=== PATIENT | male | born 1945 | race Caucasian/White ===

== ENCOUNTER → 2020-06-23 10:29 | Outpatient (BNVA) | payer MEDICARE, SELFPAY | PROVIDERS: Visit Provider Emergency Medicine | DX: Z20.828 Contact with and (suspected) exposure to other viral communicable diseases (principal); R05 Cough; D84.9 Immunodeficiency, unspecified | CPT/HCPCS: 87635 ==

== ENCOUNTER 2020-11-11 13:49 | Emergency (ER) | payer MEDICARE, SELFPAY ==
[2020-11-11 13:49] VITALS: BP 134/60; PULSE 85; RESP 16; TEMP 36.6; O2SAT 95; BMI 23.3
--- NOTE | 2020-11-11 14:11 | ECG_ITS ---
[facility] Test Date: 2020-11-11 Pat Name: Gabriel Hsieh Department: Room: Gender: Male Senior Technical Analyst: : 1945 Requested By: Heather Coates I Order Number: [id number] Conner MD: Amari Waters M.D. Measurements Intervals [place] Rate: 79 P: 7 MS: 183 QRS: 4 QRSD: 101 T: 149 QT: 377 QTc: 435 Interpretive Statements SINUS RHYTHM WITH OCCASIONAL VENTRICULAR PREMATURE COMPLEXES POSSIBLE LEFT ATRIAL ENLARGEMENT [-0.1mV P WAVE IN V1/V2] LEVT VENTRICULAR HYPERTROPHY No previous ECG available for comparison Electronically Signed On 11-11-2020 15:28:30 CDT by Amari Waters M.D. [id number] f
--- NOTE | 2020-11-11 14:11 | XRR_ITS ---
PROCEDURE INFORMATION: Exam: XR Chest Exam date and time: 11/11/2020 2:23 PM Age: 74 years old Clinical indication: Chest pain. TECHNIQUE: Imaging protocol: XR of the chest. Views: 1 view. COMPARISON: No relevant prior studies available. FINDINGS: Tubes, catheters and devices: Right port with tip in the SVC. Lungs: Bulging of the right hilum could reflect an ascending thoracic aortic aneurysm. There are probable foci of subsegmental atelectasis or scarring bilaterally. Patchy opacity in the mid to lower left chest. Pleural spaces: Small left pleural effusion. Possible small loculated fissural pneumothorax on the right. Heart/Mediastinum: Mediastinal clips are noted. A prosthetic cardiac valve is seen. The heart is enlarged. No gross evidence of pneumomediastinum. Bones/joints: Median sternotomy wires are seen. No gross fracture. XR/XR chest 1V portable [id number] IMPRESSION: 1. Cardiomegaly with small left pleural effusion. Bulging of the right hilum could reflect an ascending thoracic aortic aneurysm. 2. Patchy opacity in the mid to lower left chest that could reflect pneumonia. 3. Possible small loculated fissural pneumothorax on the right. 4. Recommend CT to better assess.
[2020-11-11 14:20] VITALS: O2SAT 97
[2020-11-11 14:29] LABS: Basophils % 0.3 %; Eosinophils # 0.1 10^3/uL (0.0-0.8); Eosinophils % 1.5 %; Hematocrit 34.8 % (42.0-52.0); Lymphocytes # 1.4 10^3/uL (0.8-4.8); Lymphocytes % 24.1 %; Mean Corpuscular HGB Conc 31.6 g/dL (30.0-36.0); Mean Corpuscular Volume 85.3 fL (80-94); Mean Platelet Volume 10.8 fL (7.4-10.4); Monocytes # 0.4 10^3/uL (0.2-0.9); Neutrophils # 3.92 10^3/uL (1.8-7.7); Neutrophils % 66.6 %; Nucleated Red Blood Cells % 0 %; Platelet Count 176 10^3/cmm (130-400); Red Blood Count 4.08 10^6/uL (4.1-5.3); Red Cell Distribution Width 14.9 % (12.1-15.1); White Blood Count 5.9 10^3/uL (4.0-10.0)
[2020-11-11 14:35] VITALS: BP 142/64; PULSE 79; PULSE 83; RESP 22; O2SAT 97
[2020-11-11 14:54] LABS: Troponin(5th) Baseline 46 ng/L (0-15)
[2020-11-11 15:03] LABS: Alanine Aminotransferase 7 U/L (0-41); Albumin Level 3.9 g/dL (3.5-5.2); Alkaline Phosphatase 94 IU/L (40-130); Aspartate Amino Transferase 17 U/L (0-40); Blood Urea Nitrogen 14 mg/dL (8-23); Calcium 8.4 mg/dL (8.5-10.5); Carbon Dioxide 26 mmol/L (22-29); Chloride 104 mmol/L (98-107); Globulin 2.2 g/dL (1.3-4.6); Glucose 87 mg/dL (65-115); Lipase 37 U/L (13-60); NT Pro B Type Natriuretic Pept 11472 pg/mL (0-450); Osmolality Calculated 290 mOsm/kg (285-295); Sodium 140 mmol/L (136-145); Total Bilirubin 0.7 mg/dL (0.15-1.2); Total Protein 6.1 g/dL (6.6-8.7)
--- NOTE | 2020-11-11 15:06 | ED_ITS ---
HPI - Recheck/Abnormal Lab/Rx General: Chief Complaint: Recheck/Abnormal Lab/Rx Stated Complaint: ABNORMAL EKG Time Seen by Provider: 11/11/20 13:51 Source: patient and family () Mode of arrival: EMS Limitations: no limitations History of Present Illness: HPI narrative: 74-year-old male with a history of valvular heart disease and who is scheduled for valve repair later this month presents to the emergency department after going to urgent care. He went to the urgent care because he had noticed that he had episodes of bradycardia accompanied by shortness of breath. This has been happening over the last week but has been getting more frequent and it happened several times today. He states that when he happens he checks his pulse oximeter his heart rate drops into the 40s and he becomes short of breath. When he went to urgent care they felt his EKG was abnormal and so sent him here to be evaluated. Review of Systems General: Reports: 10 or more systems reviewed and unremarkable except in HPI and below PFSH ED 2 PFSH: Medical History Chest pain Social History Smoking and tobacco status: never smoked Alcohol intake: never Physical Exam Const: COMMON NORMALS: no acute distress, average body habitus, patient oriented x3, no limitations, healthy appearing, alert and well nourished HENMT: COMMON NORMALS: normocephalic, atraumatic and moist oral mucous membranes HEAD & SCALP: normocephalic and atraumatic Neck/C-Spine: COMMON NORMALS: no meningeal signs and no JVD Resp: COMMON NORMALS: normal respiratory effort, No retractions, No use of accessory muscles, clear to auscultation bilaterally and percussion normal AUSCULTATION: clear to auscultation bilaterally PERCUSSION: percussion normal Cardio: COMMON NORMALS: no JVD, regular rate, regular rhythm, S1 normal heart sound present, S2 normal heart sound present, No gallops present (Cardio), No clicks present (Cardio), No murmurs present (Cardio), No rub (Cardio) and Peripheral pulses 2+ throughout RATE: regular rate RHYTHM: regular rhythm HEART SOUNDS: S1 normal heart sound present and S2 normal heart sound present PERIPHERAL PULSES: Peripheral pulses 2+ throughout GI: COMMON NORMALS: Normal to inspection, nondistended, normoactive bowel sounds present, Soft to palpation, non-tender, No hepatosplenomegaly present, no masses and no bruits PALPATION: Yes Soft to palpation and Yes No hepatosplenomegaly present Extremity: COMMON NORMALS: normal to inspection, full ROM, capillary refill normal, no calf tenderness and no pedal edema Neuro: COMMON NORMALS: patient oriented x3 SENSORIUM/ORIENTATION: Yes alert MENINGEAL SIGNS: Yes no meningeal signs Skin: COMMON NORMALS: no rashes or lesions noted, no wounds, turgor normal, no jaundice, no petechiae and no mottling GENERAL SKIN EXAM: no rashes or lesions noted and turgor normal Course Reevaluation(s): Reevaluation #1: Discussed his lab and imaging findings with him. Discussed the thoracic aortic aneurysm which the patient and his state that they know of, it is not large enough to require urgent intervention. He is also developing pneumonia based on the CT scan findings. He is in CHF and they are aware of this diagnosis. He still has pleural effusions which they know about. He is not short of breath at this time. He will be discharged home on oral antibiotics and he is to follow-up with his primary care provider. They voiced understanding and they are in agreement with the plan. Time: 17:30 Vital Signs: Vital signs: Vital Signs Temperature 97.8 F 11/11/20 13:49 Pulse Rate 77 11/11/20 19:05 Respiratory Rate 19 H 11/11/20 19:05 Blood Pressure 132/60 11/11/20 19:05 Pulse Oximetry 96 11/11/20 19:05 MDM - Recheck/Abnormal Lab/Rx MDM Narrative: Medical decision making narrative: 74-year-old male who was sent to the emergency department by his primary care provider for evaluation of an abnormal EKG. The patient has been having intermittent shortness of breath with associated bradycardia. In the emergency department his heart rate was normal throughout his ED stay. He had no episodes of shortness of breath in the emergency department. He recently had thoracocentesis done at [facility] in [place]. He still has some bilateral pleural effusion. He is also in CHF and has pneumonia. He is discharged home on oral antibiotics after receiving a dose of intravenous ceftriaxone. Medical Records: Attestation: I reviewed the patient's medical records. Lab Data: Attestation: I reviewed the patient's lab results. Labs: Lab Results 11/11/20 11/11/20 11/11/20 Range/Units 14:17 14:17 14:17 WBC 5.9 (4.0-10.0) 10^3/ uL RBC 4.08 L (4.1-5.3) 10^6/u L Hgb 11.0 L (11.7-16.6) g/dL Hct 34.8 L (42.0-52.0) % MCV 85.3 (80-94) fL MCH 27.0 L (28.0-34.0) pg MCHC 31.6 (30.0-36.0) g/dL RDW 14.9 (12.1-15.1) % Plt Count 176 (130-400) 10^3/c mm MPV 10.8 H (7.4-10.4) fL Neut % (Auto) 66.6 % Lymph % (Auto) 24.1 % Harrison % (Auto) 7.0 % Eos % (Auto) 1.5 % Baso % (Auto) 0.3 % Neut # (Auto) 3.92 (1.8-7.7) 10^3/u L Lymph # (Auto) 1.4 (0.8-4.8) 10^3/u L Harrison # (Auto) 0.4 (0.2-0.9) 10^3/u L Eos # (Auto) 0.1 (0.0-0.8) 10^3/u L Baso # (Auto) 0.0 (0.0-0.1) 10^3/u L Nucleated RBC % (a uto) 0 % Nucleated RBCs # 0.0 /100WBC Sodium 140 (136-145) mmol/L Potassium 4.0 (3.5-5.1) mmol/L Chloride 104 (98-107) mmol/L Carbon Dioxide 26 (22-29) mmol/L Anion Gap 14.0 (5-19) BUN 14 (8-23) mg/dL Creatinine 0.8 (0.7-1.2) mg/dL GFR Calculation Not Reportable Glucose 87 (65-115) mg/dL Calculated Osmolal ity 290 (285-295) mOsm/k g Calcium 8.4 L (8.5-10.5) mg/dL Total Bilirubin 0.7 (0.15-1.2) mg/dL AST 17 (0-40) U/L ALT 7 (0-41) U/L Alkaline Phosphata se 94 (40-130) IU/L Troponin T Baselin e 46 H (0-15) ng/L Troponin T 120 Min [place] (0-15) ng/L Delta Troponin T (0-10) ABS# NT-Pro-B Natriuret Pep 66506 H (0-450) pg/mL Total Protein 6.1 L (6.6-8.7) g/dL Albumin 3.9 (3.5-5.2) g/dL Globulin 2.2 (1.3-4.6) g/dL Lipase 37 (13-60) U/L 11/11/20 Range/Units 15:50 WBC (4.0-10.0) 10^3/ uL RBC (4.1-5.3) 10^6/u L Hgb (11.7-16.6) g/dL Hct (42.0-52.0) % MCV (80-94) fL MCH (28.0-34.0) pg MCHC (30.0-36.0) g/dL RDW (12.1-15.1) % Plt Count (130-400) 10^3/c mm MPV (7.4-10.4) fL Neut % (Auto) % Lymph % (Auto) % Harrison % (Auto) % Eos % (Auto) % Baso % (Auto) % Neut # (Auto) (1.8-7.7) 10^3/u L Lymph # (Auto) (0.8-4.8) 10^3/u L Harrison # (Auto) (0.2-0.9) 10^3/u L Eos # (Auto) (0.0-0.8) 10^3/u L Baso # (Auto) (0.0-0.1) 10^3/u L Nucleated RBC % (a uto) % Nucleated RBCs # /100WBC Sodium (136-145) mmol/L Potassium (3.5-5.1) mmol/L Chloride (98-107) mmol/L Carbon Dioxide (22-29) mmol/L Anion Gap (5-19) BUN (8-23) mg/dL Creatinine (0.7-1.2) mg/dL GFR Calculation Glucose (65-115) mg/dL Calculated Osmolal ity (285-295) mOsm/k g Calcium (8.5-10.5) mg/dL Total Bilirubin (0.15-1.2) mg/dL AST (0-40) U/L ALT (0-41) U/L Alkaline Phosphata se (40-130) IU/L Troponin T Baselin e (0-15) ng/L Troponin T 120 Min [place] 44.44 H (0-15) ng/L Delta Troponin T -1.56 L (0-10) ABS# NT-Pro-B Natriuret Pep (0-450) pg/mL Total Protein (6.6-8.7) g/dL Albumin (3.5-5.2) g/dL Globulin (1.3-4.6) g/dL Lipase (13-60) U/L Imaging Data^: CXR: Attestation: I personally reviewed and interpreted this imaging study as follows: Radiologist's impression: [address] [address] XRay Report Signed with Maribell Patient: Gabriel Hsieh #: [id number] : 4Acct#:[id number] Age/Sex: 74 / MADM Date: 11/11/20 Loc: ERRoom/Bed: Attending Dr: Ordering Provider/Ordering MD: Heather Chisholm MD, [facility] Date of Service: 11/11/20 Procedure(s): XR chest 1V portable [id number] Accession Number(s): [id number] Report Number: [id number] ADDENDUM XR/XR chest 1V portable [id number] Findings discussed with HEATHER CHISHOLM at 11/11/2020 3:08 PM CDT. Addendum Dictated By: Randall Castle Addendum Signed By: Mikaela Castle Date/Time:11/11/20 1510 Addendum Cosigned By: PROCEDURE INFORMATION: Exam: XR Chest Exam date and time: 11/11/2020 2:23 PM Age: 74 years old Clinical indication: Chest pain. TECHNIQUE: Imaging protocol: XR of the chest. Views: 1 view. COMPARISON: No relevant prior studies available. FINDINGS: Tubes, catheters and devices: Right port with tip in the SVC. Lungs: Bulging of the right hilum could reflect an ascending thoracic aortic aneurysm. There are probable foci of subsegmental atelectasis or scarring bilaterally. Patchy opacity in the mid to lower left chest. Pleural spaces: Small left pleural effusion. Possible small loculated fissural pneumothorax on the right. Heart/Mediastinum: Mediastinal clips are noted. A prosthetic cardiac valve is seen. The heart is enlarged. No gross evidence of pneumomediastinum. Bones/joints: Median sternotomy wires are seen. No gross fracture. XR/XR chest 1V portable [id number] IMPRESSION: 1. Cardiomegaly with small left pleural effusion. Bulging of the right hilum could reflect an ascending thoracic aortic aneurysm. 2. Patchy opacity in the mid to lower left chest that could reflect pneumonia. 3. Possible small loculated fissural pneumothorax on the right. 4. Recommend CT to better assess. Dictated By:Randall Castle Signed By:David Castleigned Date/Time:11/11/20 1508 DD/ 1507 CTA Chest: Attestation: I personally reviewed and interpreted this imaging study as follows: Radiologist's impression: [address] [address] [address] Scan Report Signed Patient: Gabriel Hsieh #: [id number] : 4At#:[id number] Age/Sex: 74 / MADM Date: 11/11/20 Loc: ERRoom/Bed: Attending Dr: Ordering Provider/Ordering MD: Heather Chisholm MD, [facility] Date of Service: 11/11/20 Procedure(s): CT angio chest PE protcl [id number] Accession Number(s): [id number] Report Number: [id number] PROCEDURE INFORMATION: Exam: CTA Chest With Contrast Exam date and time: 11/11/2020 4:10 PM Age: 74 years old Clinical indication: Prior cardiac valve replacement, port placement and CABG. History of left chest pain with shortness of breath and cough. Abnormal chest x-ray. TECHNIQUE: Imaging protocol: Computed tomographic angiography of the chest with contrast. 3D rendering (Not supervised by radiologist): MIP and/or 3D reconstructed images were created by the technologist. Radiation optimization: All CT scans at this facility use at least one of these dose optimization techniques: automated exposure control; mA and/or kV adjustment per patient size (includes targeted exams where dose is matched to clinical indication); or iterative reconstruction. Contrast material: OMNI 350; Contrast volume: 77 ml; Contrast route: INTRAVENOUS (IV); COMPARISON: CR (CHEST, ) 11/11/2020 2:19 PM RADIATION DOSE METRICS: Total DLP (mGy-cm): 588.14 FINDINGS: Tubes, catheters and devices: Right port with tip in the SVC. Pulmonary arteries: No pulmonary embolus is seen. Aorta: There is aneurysmal dilatation of the ascending thoracic aorta measuring 4.8 x 4.9 cm. There is no gross evidence of rupture. Lungs: There are foci of scarring or subsegmental atelectasis noted bilaterally. There are patchy ground-glass and airspace opacities bilaterally that could reflect developing pneumonia. There is mild peribronchial wall thickening. A solid pulmonary micronodule in the left upper lobe measures 2.3 mm (image 186). Calcified granuloma in the right middle lobe. Pleural spaces: Moderate left and large right pleural effusions. No pneumothorax. Heart: A prostatic aortic valve is noted. The heart is enlarged. No pericardial effusion. Mediastinal space: Globular debris is noted in the non dependent trachea. No hiatal hernia. Lymph nodes: A right hilar lymph node measures 1.2 x 1.3 cm. An AP window lymph node measures 1.0 x 1.4 cm. A left hilar lymph node measures 1.5 x 1.7 cm. Gallbladder and bile ducts: The gallbladder has been removed. Indeterminate right renal lesion measuring 1.4 cm. Severe left hydronephrosis. Bones/joints: Median sternotomy wires are noted. No acute fracture is identified. There are a few scattered sclerotic foci in the spine that may reflect bone islands. Median sternotomy wires are noted. Soft tissues: Bilateral gynecomastia is noted. CT/CT angio chest PE protcl [id number] IMPRESSION: 1. No pulmonary embolus. 2. There is aneurysmal dilatation of the ascending thoracic aorta measuring 4.8 x 4.9 cm. There is no gross evidence of rupture. 3. Cardiomegaly with coronary artery disease. 4. Moderate left and large right pleural effusions. 5. There is mild peribronchial wall thickening; query viral infection/bronchitis, chronic bronchitis and/or asthma. 6. There are patchy ground-glass and airspace opacities bilaterally that could reflect developing pneumonia. 7. Mediastinal and bilateral hilar lymphadenopathy. 8. Solid pulmonary micronodule measuring 2.3 mm. As per Fleischner Society 2017 guidelines for follow-up and management of pulmonary nodules: For patients at low risk (minimal or absent history of smoking and of other known risk factors), no routine follow-up. For patient at high risk (history of smoking or of other known risk factors), recommend optional CT at 12 months. 9. Indeterminate right renal lesion. Recommend nonemergent renal mass protocol CT or MRI abdomen to better characterize. 10. Severe left hydronephrosis. 11. Globular debris is noted in the non dependent trachea. COMMENTS: Consistent with the [place]'s Incidental Findings Committee white paper (J Am Annabella Radiol 2018): Any incidental renal lesion less than 1 cm or classified as too small to characterize, or any incidental cystic renal lesion characterized as simple-appearing, is likely benign. No follow-up imaging is recommended for these lesions per consensus recommendations based on imaging criteria. Radiation Dose CTDIVOL = (mGy): DLP = 588.14 (mGy-cm) Dictated By:Randall Castle Signed By:David Castleigned Date/Time:11/11/201702 DD/ 00 EKG Data^: EKG 1: Attestation: I personally reviewed and interpreted this EKG as follows: EKG interpretation date: 11/11/20 EKG interpretation time: 13:57 Prior EKG tracings: not available for review Interpretation: Sinus rhythm with occasional PVCs. Heart rate [address] changes. EKG 2: Attestation: I personally reviewed and interpreted this EKG as follows: EKG interpretation date: 11/11/20 EKG interpretation time: 16:49 Prior EKG tracings: available for review Interpretation: Sinus rhythm. Heart rate [address] changes. No significant change from earlier today. Discharge Plan Discharge Patient Disposition: Home Clinical Impression: Pleural effusion Pneumonia Qualifiers: Pneumonia type: due to unspecified organism Laterality: bilateral Lung location: unspecified part of lung Qualified Code(s): J18.9 - Pneumonia, unspecified organism CHF (congestive heart failure) Qualifiers: Heart failure type: unspecified Heart failure chronicity: chronic Qualified Code(s): I50.9 - Heart failure, unspecified Condition: Stable Prescriptions: New amoxicillin 500 mg tablet 1,000 mg PO Q8H 7 Days Qty: 42 RF: 0 azithromycin 250 mg tablet See Rx Instructions .ROUTE .COMPLEX Qty: 6 RF: 0 Continued multivitamin Tablet 1 tab PO DAILY@0900 RF: 0 furosemide 40 mg tablet 40 mg PO DAILY@0900 RF: 0 atorvastatin 40 mg tablet 40 mg PO BEDTIME@1999 RF: 0 lorazepam 0.5 mg tablet 0.5 mg PO DAILY PRN (Reason: Anxiety) RF: 0 losartan 25 mg tablet 25 mg PO DAILY RF: 0 metoprolol tartrate 50 mg tablet 50 mg PO BID@00,1999 RF: 0 calcium 1 tab PO DAILY@0900 RF: 0 Discharge Orders: Discharge ED (Routine); Ordered 11/11/20 Ordered By: Heather Chisholm Discharge Diet: Low Salt Discharge Activity: Increase activity as tolerated Patient Instructions: Congestive Heart Failure, Pleural Effusion (ED), Pneumonia (ED) Activity Restrictions/Additional Instructions: Return for any new or worsening symptoms. Follow-up with your primary care provider within 3 days. Take the antibiotic as prescribed. Follow-up with your group director experience as soon as possible. Continue your home medications. Coding Level of Care Code ED Foreign [employer] Services Manager for Drug Fwd Exam Comprehensive
--- NOTE | 2020-11-11 15:09 | CTR_ITS ---
PROCEDURE INFORMATION: Exam: CTA Chest With Contrast Exam date and time: 11/11/2020 4:10 PM Age: 74 years old Clinical indication: Prior cardiac valve replacement, port placement and CABG. History of left chest pain with shortness of breath and cough. Abnormal chest x-ray. TECHNIQUE: Imaging protocol: Computed tomographic angiography of the chest with contrast. 3D rendering (Not supervised by radiologist): MIP and/or 3D reconstructed images were created by the technologist. Radiation optimization: All CT scans at this facility use at least one of these dose optimization techniques: automated exposure control; mA and/or kV adjustment per patient size (includes targeted exams where dose is matched to clinical indication); or iterative reconstruction. Contrast material: OMNI 350; Contrast volume: 77 ml; Contrast route: INTRAVENOUS (IV); COMPARISON: CR (CHEST, ) 11/11/2020 2:19 PM RADIATION DOSE METRICS: Total DLP (mGy-cm): 588.14 FINDINGS: Tubes, catheters and devices: Right port with tip in the SVC. Pulmonary arteries: No pulmonary embolus is seen. Aorta: There is aneurysmal dilatation of the ascending thoracic aorta measuring 4.8 x 4.9 cm. There is no gross evidence of rupture. Lungs: There are foci of scarring or subsegmental atelectasis noted bilaterally. There are patchy ground-glass and airspace opacities bilaterally that could reflect developing pneumonia. There is mild peribronchial wall thickening. A solid pulmonary micronodule in the left upper lobe measures 2.3 mm (image 186). Calcified granuloma in the right middle lobe. Pleural spaces: Moderate left and large right pleural effusions. No pneumothorax. Heart: A prostatic aortic valve is noted. The heart is enlarged. No pericardial effusion. Mediastinal space: Globular debris is noted in the non dependent trachea. No hiatal hernia. Lymph nodes: A right hilar lymph node measures 1.2 x 1.3 cm. An AP window lymph node measures 1.0 x 1.4 cm. A left hilar lymph node measures 1.5 x 1.7 cm. Gallbladder and bile ducts: The gallbladder has been removed. Indeterminate right renal lesion measuring 1.4 cm. Severe left hydronephrosis. Bones/joints: Median sternotomy wires are noted. No acute fracture is identified. There are a few scattered sclerotic foci in the spine that may reflect bone islands. Median sternotomy wires are noted. Soft tissues: Bilateral gynecomastia is noted. CT/CT angio chest PE protcl [id number] IMPRESSION: 1. No pulmonary embolus. 2. There is aneurysmal dilatation of the ascending thoracic aorta measuring 4.8 x 4.9 cm. There is no gross evidence of rupture. 3. Cardiomegaly with coronary artery disease. 4. Moderate left and large right pleural effusions. 5. There is mild peribronchial wall thickening; query viral infection/bronchitis, chronic bronchitis and/or asthma. 6. There are patchy ground-glass and airspace opacities bilaterally that could reflect developing pneumonia. 7. Mediastinal and bilateral hilar lymphadenopathy. 8. Solid pulmonary micronodule measuring 2.3 mm. As per Fleischner Society 2017 guidelines for follow-up and management of pulmonary nodules: For patients at low risk (minimal or absent history of smoking and of other known risk factors), no routine follow-up. For patient at high risk (history of smoking or of other known risk factors), recommend optional CT at 12 months. 9. Indeterminate right renal lesion. Recommend nonemergent renal mass protocol CT or MRI abdomen to better characterize. 10. Severe left hydronephrosis. 11. Globular debris is noted in the non dependent trachea. COMMENTS: Consistent with the [place]'s Incidental Findings Committee white paper (J Am Annabella Radiol 2018): Any incidental renal lesion less than 1 cm or classified as too small to characterize, or any incidental cystic renal lesion characterized as simple-appearing, is likely benign. No follow-up imaging is recommended for these lesions per consensus recommendations based on imaging criteria. Radiation Dose CTDIVOL = (mGy): DLP = 588.14 (mGy-cm)
[2020-11-11 15:22] VITALS: BP 97/40; PULSE 81; RESP 28; O2SAT 95
--- NOTE | 2020-11-11 16:11 | ECG_ITS ---
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 Measurements Intervals [place] Rate: 74 P: 10 DE: 187 QRS: -2 QRSD: 99 T: 125 QT: 390 QTc: 435 Interpretive Statements SINUS RHYTHM POSSIBLE LEFT ATRIAL ENLARGEMENT [-0.1mV P WAVE IN V1/V2] ST DEVIATION AND MODERATE T-WAVE ABNORMALITY, CONSIDER LATERAL ISCHEMIA [-0.1+ mV T WAVE IN I/aVL/V5/V6] Compared to ECG 11/11/2020 13:56:58 T-wave abnormality now present Possible ischemia now present Ventricular premature complex(es) no longer present Electronically Signed On 11-12-2020 20:14:53 CDT by Amari Waters M.D. [email or web address]
[2020-11-11 16:27] LABS: Troponin 5 2HR 44.44 ng/L (0-15)
[2020-11-11] MEDS: iohexol 350 mg/mL 100 mL Btl IV (16:28)
[2020-11-11 16:52] LABS: Troponin 5 2HR Delta -1.56 ABS# (0-10)
[2020-11-11] MEDS: cefTRIAXone 1,000 MG in sodium chloride 0.9% (plus) 50 ML 100 MG IV (17:38)
[2020-11-11 17:40] VITALS: BP 123/67; PULSE 81; RESP 18; O2SAT 96
[2020-11-11 19:05] VITALS: BP 132/60; PULSE 77; RESP 19; O2SAT 96
== END 2020-11-11 17:48 | disposition home or self-care (01) ==
PROVIDERS: Emergency Provider Family Medicine
DX: J18.9 Pneumonia, unspecified organism (principal); J90 Pleural effusion, not elsewhere classified; I50.9 Heart failure, unspecified; R07.9 Chest pain, unspecified
CPT/HCPCS: 36415; 71045; 71275; 80053; 83690; 83880; 84484; 85025; 93005; 96365; 99284; J0696; Q9967

== ENCOUNTER 2020-12-08 14:58 | Emergency (ER) | payer MEDICARE, SELFPAY ==
[2020-12-08 15:02] VITALS: BP 167/76; PULSE 64; RESP 16; TEMP 36.4; O2SAT 94; BMI 23.1
--- NOTE | 2020-12-08 15:37 | CTR_ITS ---
PROCEDURE INFORMATION: Exam: CT Abdomen And Pelvis With Contrast Exam date and time: 12/08/2020 4:25 PM Age: 74 years old Clinical indication: Injury or trauma; Blunt; Generalized; Prior surgery; Surgery date: 6+ months; Surgery type: Gb, bladder; Patient HX: Kicked by a horse R flank and pelvic bruising w L abd pain; Additional info: Trauma; Trampled by horse TECHNIQUE: Imaging protocol: Computed tomography of the abdomen and pelvis with contrast. Radiation optimization: All CT scans at this facility use at least one of these dose optimization techniques: automated exposure control; mA and/or kV adjustment per patient size (includes targeted exams where dose is matched to clinical indication); or iterative reconstruction. Contrast material: OMNI 300; Contrast volume: 95 ml; Contrast route: INTRAVENOUS (IV); COMPARISON: CR (PELVIS, ) 12/08/2020 3:53 PM RADIATION DOSE METRICS: Total DLP (mGy-cm): 946.94 FINDINGS: Lungs: Emphysematous changes of the lungs. Pleural spaces: Small volume right pleural effusion. Trace volume left pleural effusion. Heart: Mild multichamber cardiac dilation. Liver: Normal. No mass. Gallbladder and bile ducts: Cholecystectomy. No obstruction of biliary system. Pancreas: Normal. No ductal dilation. Spleen: Normal. No splenomegaly. Adrenal glands: Normal. No mass. Kidneys and ureters: Severe left collecting system hydroureteronephrosis. Mild right collecting system hydroureteronephrosis. Small nonobstructing left kidney stone. Stomach and bowel: Unremarkable. No obstruction. No mucosal thickening. Appendix: No evidence of appendicitis. Intraperitoneal space: Unremarkable. No free air. No significant fluid collection. Vasculature: Stent within the aortic root. Diffuse atherosclerosis. No abdominal aortic aneurysm. No vascular occlusion. No active bleeding. Lymph nodes: Unremarkable. No enlarged lymph nodes. Urinary bladder: Thick-walled bladder which is eccentrically thicker along the left lateral wall and left posterior wall. Reproductive: Unremarkable as visualized. Bones/joints: Sclerotic mineralization changes in the lateral aspect of right rib 10. No acute lower rib fractures. No acute lumbar spine fracture. No acute pelvic fracture. Hip joints have anatomic alignment. Pelvic ring alignment is normal. Lumbar alignment is normal. Severe disc disease at L5-S1. Soft tissues: Surgical clips bilaterally within pelvis. No soft tissue hematoma of the abdominal wall. CT/CT abdomen pelvis w con* [id number] IMPRESSION: 1. Negative for acute abdominopelvic injury. 2. Thickened, trabeculated bladder wall. There is eccentric wall thickening near the left UVJ which causes severe hydroureteronephrosis of the left collecting system. Given the asymmetry in the thickening, a bladder mass cannot be excluded. Cystoscopic evaluation is recommended. Radiation Dose CTDIVOL = (mGy): DLP = 946.94 (mGy-cm)
--- NOTE | 2020-12-08 15:38 | ED_ITS ---
Documented by User: VAISHALI Leiva 12/11/20 07:08 HPI - Trauma General: Chief Complaint: Trauma Stated Complaint: trampled by horse Time Seen by Provider: 12/08/20 15:13 Source: patient and family Mode of arrival: ambulatory Limitations: no limitations History of Present Illness: HPI narrative: Patient is a pleasant 74-year-old male who presents to ED today for evaluation after he was trampled by a horse yesterday. Patient tells me he was at a horse show when a horse became spooked and ran into him. Patient states the horse knocked him backwards. He states he did strike his head but no LOC. Family states he was dazed . He states that th e fall knocked the wind out of me but after resting for approximately 5 minutes he felt normal. Patient does not remember the horse stepping directly onto him however family noticed some bruising to his right lower back/pelvis. He tells me he noticed today he started having some left-sided abdominal and lower abdominal pain thus decided to come to the ED for evaluation. Patient is urinating normally. Normal bowel movements. He has no chest pain or shortness of breath. No midline back pain or neck pain. Has been ambulatory since the event without difficulty. MD complaint: fall Onset (ago): day(s) (yesterday) Loss of Consciousness: no Location: abdomen Context: other (trampled by horse) Associated symptoms: Reports abdominal pain; Denies back pain, chest pain, confusion, dizziness, epistaxis, headache(s), nausea, syncope or vomiting Review of Systems Eyes: Denies: change in vision, blurry vision, photophobia, floaters or seeing flashes ENMT: Denies: throat pain, odynophagia or epistaxis Card: Denies: chest pain, palpitations, irregular heart rhythm, edema, swelling of feet/ankles, lightheadedness, syncope, pre-syncope, dyspnea on exertion, orthopnea or leg pain with exertion Resp: Denies: dyspnea, productive cough, non-productive cough, hemoptysis or chest congestion GI: Reports: abdominal pain; Denies: nausea, vomiting, diarrhea, change in stool character, hematochezia or melena : Denies: flank pain, dysuria, hematuria or genital pain Musc: Denies: neck pain, back pain, extremity pain, extremity swelling, joint pain, joint swelling, joint redness or limited range of motion Neuro: Denies: headache(s), numbness in extremities, weakness in extremities, sensory changes, lack of coordination, difficulty walking, dizziness, vertigo, confusion, behavioral changes, Slurred speech present, difficulty communicating thoughts or seizure-like activity PFSH ED PFSH: Medical History (Reviewed 11/11/20 @ 15:40 by Heather Coates MD, [facility] [place]) Chest pain Social History (Updated 12/08/20 @ 15:08 by Yousif Carbone RN) Smoking and tobacco status: never smoked Alcohol intake: never Substance/Drug Use: former Physical Exam Const: COMMON NORMALS: no acute distress, average body habitus, patient oriented x3, no limitations, healthy appearing and alert GENERAL APPEARANCE: cooperative NUTRITIONAL APPEARANCE: thin ORIENTATION/CONSCIOUSNESS: Yes awake, Yes oriented to person, Yes oriented to place and Yes oriented to time HENMT: COMMON NORMALS: normocephalic, atraumatic, hearing grossly normal bilaterally, external ears normal, EAC's normal and TM's normal bilaterally HEAD & SCALP: normal to inspection, normocephalic and atraumatic FACE & SINUS: normal facial exam EXTERNAL EAR: Yes external ears normal EXTERNAL AUDITORY CANAL: EAC's normal TYMPANIC MEMBRANE: TM's normal bilaterally Eye: COMMON NORMALS: Equal, round and reactive pupils present and EOMs intact bilaterally GENERAL EYE: appearance normal, both eyes and all related structures PUPIL: Yes Equal, round and reactive pupils present Neck/C-Spine: COMMON NORMALS: full ROM CERVICAL SPINE: Yes cervical ROM normal, No pain with cervical ROM, No Cervical spine tenderness and No Paracervical muscle tenderness Chest: COMMONS NORMALS: normal inspection of the chest and normal palpation of entire chest wall Resp: COMMON NORMALS: normal respiratory effort and clear to auscultation bilaterally AUSCULTATION: clear to auscultation bilaterally Cardio: COMMON NORMALS: regular rate and regular rhythm RATE: regular rate RHYTHM: regular rhythm GI: COMMON NORMALS: Normal to inspection, nondistended, normoactive bowel sounds present, Soft to palpation, No hepatosplenomegaly present and no masses INSPECTION: Yes normal to inspection PALPATION: Yes Soft to palpation, Yes Tenderness to palpation present (GI) (throughout left and lower abdomen) and Yes No hepatosplenomegaly present : COMMON NORMALS: Yes no CVA tenderness BLADDER/KIDNEY EXAM: Yes no CVA tenderness Back/Pelvis: COMMON NORMALS: no CVA tenderness, thoracic and lumbar spine normal to inspection, no thoracic nor lumbar tenderness, thoraco-lumbar ROM normal and straight leg raise negative bilaterally THORACIC SPINE/UPPER BACK: Yes normal to inspection and Yes thoracic ROM normal LUMBAR SPINE/LOWER BACK: Yes normal to inspection and Yes lumbar ROM normal PELVIS: Yes buttocks normal BACK IMAGE (MALE): 1. small 2 inch area of faint ecchymosis Extremity: COMMON NORMALS: normal to inspection and full ROM GENERAL: Yes normal exam except as noted Neuro: JOSE ALEJANDRO COMA SCALE: document GCS findings [place] coma scale eye opening: Spontaneous [place] coma scale verbal response: Orientated Jose Alejandro coma scale motor response: Obey commands Jose Alejandro coma scale total score: 15 COMMON NORMALS: patient oriented x3, CN's II-XII intact bilaterally, moves all extremities, no focal motor deficits, no sensory deficits noted and gait normal SENSORIUM/ORIENTATION: Yes alert, Yes oriented to person, Yes oriented to place and Yes oriented to time Skin: TRAUMA: no lacerations or abrasions Course Vital Signs: Vital signs: Vital Signs Temperature 97.5 F L 12/08/20 15:02 Pulse Rate 56 L 12/08/20 18:13 Respiratory Rate 14 12/08/20 18:13 Blood Pressure 145/70 12/08/20 18:13 Pulse Oximetry 96 12/08/20 18:13 MDM - Trauma MDM Narrative: Medical decision making narrative: Care transferred to CHRISTINA Delcid pending imaging results. Lab Data: Labs: Lab Results 12/08/20 12/08/20 12/08/20 Range/Units 15:17 15:30 15:30 WBC 5.5 (4.0-10.0) 10^3/ uL RBC 3.74 L (4.1-5.3) 10^6/u L Hgb 9.7 L (11.7-16.6) g/dL Hct 31.5 L (42.0-52.0) % MCV 84.2 (80-94) fL MCH 25.9 L (28.0-34.0) pg MCHC 30.8 (30.0-36.0) g/dL RDW 14.5 (12.1-15.1) % Plt Count 214 (130-400) 10^3/c mm MPV 9.8 (7.4-10.4) fL Neut % (Auto) 75.4 % Lymph % (Auto) 18.8 % [place] % (Auto) 4.7 % Eos % (Auto) 0.5 % Baso % (Auto) 0.2 % Neut # (Auto) 4.17 (1.8-7.7) 10^3/u L Lymph # (Auto) 1.0 (0.8-4.8) 10^3/u L [place] # (Auto) 0.3 (0.2-0.9) 10^3/u L Eos # (Auto) 0.0 (0.0-0.8) 10^3/u L Baso # (Auto) 0.0 (0.0-0.1) 10^3/u L Nucleated RBC % (a uto) 0 % Nucleated RBCs # 0.0 /100WBC Sodium 134 L (136-145) mmol/L Potassium 4.3 (3.5-5.1) mmol/L Chloride 98 (98-107) mmol/L Carbon Dioxide 27 (22-29) mmol/L Anion Gap 13.3 (5-19) BUN 27 H (8-23) mg/dL Creatinine 1.1 (0.7-1.2) mg/dL GFR Calculation Not Reportable Glucose 121 H (65-115) mg/dL Calculated Osmolal ity 284 L (285-295) mOsm/k g Calcium 8.8 (8.5-10.5) mg/dL Total Bilirubin 0.7 (0.15-1.2) mg/dL AST 24 (0-40) U/L ALT 14 (0-41) U/L Alkaline Phosphata se 119 (40-130) IU/L Total Protein 6.5 L (6.6-8.7) g/dL Albumin 3.8 (3.5-5.2) g/dL Globulin 2.7 (1.3-4.6) g/dL Urine Color Straw (Yellow) Urine Appearance Clear (CLEAR) Urine pH 6.5 (5-7) Ur Specific Gravit y 1.015 (1.005-1.030) Urine Protein Neg (Negative) Urine Glucose (UA) Norm (Normal) Urine Ketones Negative (Negative) Urine Blood Neg (Negative) Urine Nitrate Negative (Negative) Urine Bilirubin Neg (Negative) Urine Urobilinogen Norm (Negative) mg/dL Ur Leukocyte Anna ase Negative (Negative) Imaging Data^: XR pelvis: Radiologist's impression: [facility] [employer] [facility] [address] [place] [id number] XRay Report Signed Patient: Gabriel Hsieh Unit #: [id number] : 1945 Age/Sex: 74 / M ADM Date: 12/08/20 Loc: ER Room/Bed: Attending Dr: Ordering Provider/Ordering MD: Madelin Gerardo Date of Service: 12/08/20 Procedure(s): XR pelvis 1-2V* [id number] Accession Number(s): [id number] Report Number: [id number] PROCEDURE INFORMATION: Exam: XR Pelvis Exam date and time: 12/08/2020 3:46 PM Age: 74 years old Clinical indication: Injury or trauma; Other: Horse hit him; Blunt trauma (contusions or hematomas); Bilateral; Pelvic region TECHNIQUE: Imaging protocol: XR pelvis. Views: 1 or 2 view. COMPARISON: No relevant prior studies available. FINDINGS: Bones/joints: Negative for fracture. Demineralized bones. Normal joint alignment. Pelvic ring alignment intact. Mild to moderate severity hip joint osteoarthritis worse on left than right. Soft tissues: Unremarkable. Intraperitoneal space: Surgical clips in the bilateral pelvis. Vasculature: Scattered atherosclerosis. XR/XR pelvis 1-2V* [id number] IMPRESSION: Negative for pelvic fracture. Dictated By: Lamonte Nettles Signed By: Lamonte Nettles Signed Date/Time: 12/08/20 1622 DD/ 1620 CXR: Radiologist's impression: [facility] [employer] [facility] [address] [place] [address]. [place] [address] XRay Report Signed Patient: Gabriel Hsieh Unit #: [id number] : 1945 Age/Sex: 74 / M ADM Date: 12/08/20 Loc: ER Room/Bed: Attending Dr: Ordering Provider/Ordering MD: Madelin Gerardo Date of Service: 12/08/20 Procedure(s): XR chest 1V portable [id number] Accession Number(s): [id number] Report Number: [id number] PROCEDURE INFORMATION: Exam: XR Chest Exam date and time: 12/08/2020 3:46 PM Age: 74 years old Clinical indication: Injury or trauma; Other: Horse hit him; Blunt trauma (contusions or hematomas); Injury details: Left lower ribs; Prior surgery TECHNIQUE: Imaging protocol: XR of the chest. Views: 1 view. COMPARISON: CR (CHEST, ) 11/11/2020 2:19 PM FINDINGS: Tubes, catheters and devices: Right chest tunnel Port-A-Cath terminates in the mid SVC in good position without change from prior. Lungs: Background emphysema. Focal area of interstitial lung scarring left mid lung zone stable from prior. No focal acute pulmonary consolidation or hemorrhage. Pleural spaces: Unremarkable. No pleural effusion. No pneumothorax. Heart/Mediastinum: Prior CABG. Aortic valve replacement and stent within the aortic root. Bones/joints: Negative for acute thoracic fracture. Bones are demineralized. XR/XR chest 1V portable [id number] IMPRESSION: No acute chest findings. Dictated By: Lamonte Nettles Signed By: Lamonte Nettles Signed Date/Time: 12/08/201622 DD/ 20 Discharge Plan Discharge Patient Disposition: Home Clinical Impression: Contusion Qualifiers: Encounter type: initial encounter Contusion area: lower back Qualified Code(s): S30.0XXA - Contusion of lower back and pelvis, initial encounter Head injury Qualifiers: Encounter type: initial encounter Qualified Code(s): S09.90XA - Unspecified injury of head, initial encounter Condition: Stable Prescriptions: New tramadol 50 mg tablet 50 mg PO TID PRN (Reason: pain) Qty: 7 RF: 0 No Action multivitamin Tablet 1 tab PO QAM RF: 0 furosemide 40 mg tablet 40 mg PO QAM RF: 0 atorvastatin 40 mg tablet 40 mg PO BEDTIME RF: 0 lorazepam 0.5 mg tablet 0.5 mg PO DAILY PRN (Reason: Anxiety) RF: 0 losartan 25 mg tablet 25 mg PO QAM RF: 0 metoprolol tartrate 50 mg tablet 75 mg PO BID RF: 0 calcium 1 tab PO DAILY RF: 0 aspirin 325 mg Tablet 325 mg PO QAM RF: 0 polymyxin B sulf-trimethoprim 10,000 unit- 1 mg/mL drops 1 drp ophthalmic (eye) QID RF: 0 Eliquis 5 mg tablet 5 mg PO BID RF: 0 Discharge Orders: Discharge ED (Routine); Ordered 12/08/20 Ordered By: Enrique Echevarria Discharge Diet: Usual diet Discharge Activity: Increase activity as tolerated Patient Instructions: Contusion in Adults (ED), Opioid Safety Activity Restrictions/Additional Instructions: Follow-up with medical provider as directed. Take medications as prescribed. Return to the ER or your medical provider if condition worsens. Please read and understand discharge instructions. If any questions ask please. Follow-up with your specialist concerning your bladder and your anemia. Coding Level of Care Code ED Registered Occupational Therapist for Chg Fwd Exam Comprehensive Documented by User: CHRISTINA Delcid 12/09/20 00:07 HPI - Trauma General: Chief Complaint: Trauma Stated Complaint: trampled by horse Time Seen by Provider: 12/08/20 15:13 [facility] ED PFSH: Medical History (Reviewed 11/11/20 @ 15:40 by Heather Coates MD, [facility] [place]) Chest pain Social History (Updated 12/08/20 @ 15:08 by Yousif Carbone RN) Smoking and tobacco status: never smoked Alcohol intake: never Substance/Drug Use: former Physical Exam Back/Pelvis: BACK IMAGE (MALE): 1. small 2 inch area of faint ecchymosis Course Vital Signs: Vital signs: Vital Signs Temperature 97.5 F L 12/08/20 15:02 Pulse Rate 56 L 12/08/20 18:13 Respiratory Rate 14 12/08/20 18:13 Blood Pressure 145/70 12/08/20 18:13 Pulse Oximetry 96 12/08/20 18:13 MDM - Trauma MDM Narrative: Medical decision making narrative: Reviewed labs and radiology reports CT of the abdomen shows that he has some asymmetry and thickening bladder wall. Discussed this with patient and daughter and they said these had his bladder wall prescription twice he has a history of tumors and he follows up regularly with his specialist also has history of anemia and they follow that closely. CT of the head neck appears normal. Patient will be discharged home with follow-up primary care provider. Lab Data: Labs: Lab Results 12/08/20 12/08/20 12/08/20 Range/Units 15:17 15:30 15:30 WBC 5.5 (4.0-10.0) 10^3/ uL RBC 3.74 L (4.1-5.3) 10^6/u L Hgb 9.7 L (11.7-16.6) g/dL Hct 31.5 L (42.0-52.0) % MCV 84.2 (80-94) fL MCH 25.9 L (28.0-34.0) pg MCHC 30.8 (30.0-36.0) g/dL RDW 14.5 (12.1-15.1) % Plt Count 214 (130-400) 10^3/c mm MPV 9.8 (7.4-10.4) fL Neut % (Auto) 75.4 % Lymph % (Auto) 18.8 % [place] % (Auto) 4.7 % Eos % (Auto) 0.5 % Baso % (Auto) 0.2 % Neut # (Auto) 4.17 (1.8-7.7) 10^3/u L Lymph # (Auto) 1.0 (0.8-4.8) 10^3/u L [place] # (Auto) 0.3 (0.2-0.9) 10^3/u L Eos # (Auto) 0.0 (0.0-0.8) 10^3/u L Baso # (Auto) 0.0 (0.0-0.1) 10^3/u L Nucleated RBC % (a uto) 0 % Nucleated RBCs # 0.0 /100WBC Sodium 134 L (136-145) mmol/L Potassium 4.3 (3.5-5.1) mmol/L Chloride 98 (98-107) mmol/L Carbon Dioxide 27 (22-29) mmol/L Anion Gap 13.3 (5-19) BUN 27 H (8-23) mg/dL Creatinine 1.1 (0.7-1.2) mg/dL GFR Calculation Not Reportable Glucose 121 H (65-115) mg/dL Calculated Osmolal ity 284 L (285-295) mOsm/k g Calcium 8.8 (8.5-10.5) mg/dL Total Bilirubin 0.7 (0.15-1.2) mg/dL AST 24 (0-40) U/L ALT 14 (0-41) U/L Alkaline Phosphata se 119 (40-130) IU/L Total Protein 6.5 L (6.6-8.7) g/dL Albumin 3.8 (3.5-5.2) g/dL Globulin 2.7 (1.3-4.6) g/dL Urine Color Straw (Yellow) Urine Appearance Clear (CLEAR) Urine pH 6.5 (5-7) Ur Specific Gravit y 1.015 (1.005-1.030) Urine Protein Neg (Negative) Urine Glucose (UA) Norm (Normal) Urine Ketones Negative (Negative) Urine Blood Neg (Negative) Urine Nitrate Negative (Negative) Urine Bilirubin Neg (Negative) Urine Urobilinogen Norm (Negative) mg/dL Ur Leukocyte Anna ase Negative (Negative) Discharge Plan Discharge Patient Disposition: Home Clinical Impression: Contusion Qualifiers: Encounter type: initial encounter Contusion area: lower back Qualified Code(s): S30.0XXA - Contusion of lower back and pelvis, initial encounter Head injury Qualifiers: Encounter type: initial encounter Qualified Code(s): S09.90XA - Unspecified injury of head, initial encounter Condition: Stable Prescriptions: New tramadol 50 mg tablet 50 mg PO TID PRN (Reason: pain) Qty: 7 RF: 0 No Action multivitamin Tablet 1 tab PO QAM RF: 0 furosemide 40 mg tablet 40 mg PO QAM RF: 0 atorvastatin 40 mg tablet 40 mg PO BEDTIME RF: 0 lorazepam 0.5 mg tablet 0.5 mg PO DAILY PRN (Reason: Anxiety) RF: 0 losartan 25 mg tablet 25 mg PO QAM RF: 0 metoprolol tartrate 50 mg tablet 75 mg PO BID RF: 0 calcium 1 tab PO DAILY RF: 0 aspirin 325 mg Tablet 325 mg PO QAM RF: 0 polymyxin B sulf-trimethoprim 10,000 unit- 1 mg/mL drops 1 drp ophthalmic (eye) QID RF: 0 Eliquis 5 mg tablet 5 mg PO BID RF: 0 Discharge Orders: Discharge ED (Routine); Ordered 12/08/20 Ordered By: Enrique Echevarria Discharge Diet: Usual diet Discharge Activity: Increase activity as tolerated Patient Instructions: Contusion in Adults (ED), Opioid Safety Activity Restrictions/Additional Instructions: Follow-up with medical provider as directed. Take medications as prescribed. Return to the ER or your medical provider if condition worsens. Please read and understand discharge instructions. If any questions ask please. Follow-up with your specialist concerning your bladder and your anemia. Coding Level of Care Code ED Registered Occupational Therapist for Drug Fwd Exam Comprehensive
--- NOTE | 2020-12-08 15:47 | CTR_ITS ---
PROCEDURE INFORMATION: Exam: CT Cervical Spine Without Contrast Exam date and time: 12/08/2020 4:25 PM Age: 74 years old Clinical indication: Injury or trauma; Blunt trauma; Prior surgery; Surgery date: 6+ months; Surgery type: Fusion; Patient HX: Kicked by a horse denies loc; Additional info: Fall TECHNIQUE: Imaging protocol: Computed tomography images of the cervical spine without contrast. Radiation optimization: All CT scans at this facility use at least one of these dose optimization techniques: automated exposure control; mA and/or kV adjustment per patient size (includes targeted exams where dose is matched to clinical indication); or iterative reconstruction. COMPARISON: No relevant prior studies available. RADIATION DOSE METRICS: Total DLP (mGy-cm): 374.36 FINDINGS: Tubes, catheters and devices: Partial visualization of the right neck central venous catheter. Vertebrae: No fractures. No traumatic malalignment. Click cervical severe osseous ankylosis changes across the disc spaces of C5-C6 and C6-C7. Severe disc height loss at C3-C4, C4-C5, C7-T1. No lytic, aggressive bone lesion. Diffuse facet joint arthropathy. Soft tissues: Unremarkable. Vasculature: Atherosclerotic plaques bilateral carotid artery bulbs. Lungs: Severe emphysema. CT/CT cervical spin wo con* [id number] IMPRESSION: Negative for acute cervical spine fracture. Radiation Dose CTDIVOL = (mGy): DLP = 374.36 (mGy-cm)
--- NOTE | 2020-12-08 15:47 | CTR_ITS ---
PROCEDURE INFORMATION: Exam: CT Head Without Contrast Exam date and time: 12/08/2020 4:25 PM Age: 74 years old Clinical indication: Injury or trauma; Blunt trauma (contusions or hematomas); Without loss of consciousness; Patient HX: Kicked by a horse denies loc TECHNIQUE: Imaging protocol: Computed tomography of the head without contrast. Radiation optimization: All CT scans at this facility use at least one of these dose optimization techniques: automated exposure control; mA and/or kV adjustment per patient size (includes targeted exams where dose is matched to clinical indication); or iterative reconstruction. COMPARISON: No relevant prior studies available. RADIATION DOSE METRICS: Total DLP (mGy-cm): 864.98 FINDINGS: Brain: There is moderate cerebral atrophy. No intracranial hemorrhage. No intracranial mass. No midline shift. No mass effect. Cerebral ventricles: No ventriculomegaly. Bones/joints: No acute fractures. There is surgical change to the right lateral orbital wall and the right anterior maxillary sinus wall. Paranasal sinuses: Visualized sinuses are unremarkable. No fluid levels. Mastoid air cells: Visualized mastoid air cells are well aerated. Soft tissues: Unremarkable. CT/CT head wo con* [id number] IMPRESSION: No acute intracranial abnormality. Radiation Dose CTDIVOL = (mGy): DLP = 864.98 (mGy-cm)
[2020-12-08 16:00] LABS: Basophils % 0.2 %; Eosinophils % 0.5 %; Hematocrit 31.5 % (42.0-52.0); Hemoglobin 9.7 g/dL (11.7-16.6); Lymphocytes % 18.8 %; Mean Corpuscular HGB Conc 30.8 g/dL (30.0-36.0); Mean Corpuscular Hemoglobin 25.9 pg (28.0-34.0); Mean Corpuscular Volume 84.2 fL (80-94); Mean Platelet Volume 9.8 fL (7.4-10.4); Monocytes # 0.3 10^3/uL (0.2-0.9); Monocytes % 4.7 %; Neutrophils # 4.17 10^3/uL (1.8-7.7); Neutrophils % 75.4 %; Nucleated Red Blood Cells % 0 %; Platelet Count 214 10^3/cmm (130-400); Red Blood Count 3.74 10^6/uL (4.1-5.3); Red Cell Distribution Width 14.5 % (12.1-15.1); White Blood Count 5.5 10^3/uL (4.0-10.0)
[2020-12-08 16:07] VITALS: BP 139/73; PULSE 58; RESP 16; O2SAT 97
[2020-12-08 16:15] VITALS: RESP 16; O2SAT 100
[2020-12-08] MEDS: morphine 4 mg/mL SDV 1 mL IVP (16:15)
[2020-12-08] MEDS: ondansetron 2 mg/ML SDV 2 mL 4 MG IVP (16:15)
[2020-12-08 16:29] LABS: Alanine Aminotransferase 14 U/L (0-41); Albumin Level 3.8 g/dL (3.5-5.2); Alkaline Phosphatase 119 IU/L (40-130); Anion Gap 13.3 (5-19); Aspartate Amino Transferase 24 U/L (0-40); Blood Urea Nitrogen 27 mg/dL (8-23); Calcium 8.8 mg/dL (8.5-10.5); Carbon Dioxide 27 mmol/L (22-29); Chloride 98 mmol/L (98-107); Globulin 2.7 g/dL (1.3-4.6); Glucose 121 mg/dL (65-115); Osmolality Calculated 284 mOsm/kg (285-295); Potassium 4.3 mmol/L (3.5-5.1); Sodium 134 mmol/L (136-145); Total Bilirubin 0.7 mg/dL (0.15-1.2); Total Protein 6.5 g/dL (6.6-8.7)
[2020-12-08] MEDS: iohexol 300 mg/mL 100 mL Btl IV (16:45)
[2020-12-08 17:11] VITALS: BP 140/64; PULSE 64; RESP 16; O2SAT 96
[2020-12-08 17:21] LABS: Add Urine Microscopic? NO; Charge for UA Resulting for Rev
[2020-12-08 17:29] LABS: Bilirubin Urine Neg (Negative); Blood Urine Neg (Negative); Glucose Urine UA Norm (Normal); Ketones Urine Negative (Negative); Leukocyte Esterase Urine Negative (Negative); Nitrate Urine Negative (Negative); Protein Urine Neg (Negative); Specific Gravity, Urine 1.015 (1.005-1.030); Urine Appearance Clear (CLEAR); Urine Color Straw (Yellow); Urobilinogen Urine Norm (Negative); pH Urine 6.5 (5-7)
[2020-12-08 18:02] VITALS: BP 145/70; PULSE 58; RESP 18; O2SAT 100; O2SAT 84
--- NOTE | 2020-12-08 18:02 | PC.NURSE ---
Pt was noted to be 84% on room air after Morphine administration. Pt placed on 2LNC for supplement. Pt states pt has sleep apnea and requires oxygen at bedtime at baseline. Pt resting comfortably.
[2020-12-08 18:13] VITALS: BP 145/70; PULSE 56; RESP 14; O2SAT 96
== END 2020-12-08 18:16 | disposition home or self-care (01) ==
PROVIDERS: Physician Assistant; Emergency Provider Nurse Practitioner Family
DX: S09.90XA Unspecified injury of head, initial encounter (principal); S30.0XXA Contusion of lower back and pelvis, initial encounter; Z79.82 Long term (current) use of aspirin; Z79.01 Long term (current) use of anticoagulants; W55.12XA Struck by horse, initial encounter
CPT/HCPCS: 70450; 71045; 72125; 72170; 74177; 80053; 81003; 85025; 96374; 96375; 99284; J2270; J2405; Q9967

== ENCOUNTER 2021-01-03 20:00 | Outpatient (CLI) | payer MEDICARE, SELFPAY | END 2021-01-03 20:01 | disposition home or self-care (01) | LOC: SLEEP 01-07 11:57 | PROVIDERS: Visit Provider Physician Assistant | DX: G47.10 Hypersomnia, unspecified (principal); G47.33 Obstructive sleep apnea (adult) (pediatric); G47.36 Sleep related hypoventilation in conditions classified elsewhere | CPT/HCPCS: 95810 ==

== ENCOUNTER 2021-04-20 15:19 | Emergency (ER) | payer MEDICARE, SELFPAY ==
[2021-04-20 15:32] VITALS: BP 128/71; PULSE 78; RESP 16; TEMP 36.7; O2SAT 98
[2021-04-20 15:42] VITALS: BP 100/62; PULSE 79; O2SAT 97
--- NOTE | 2021-04-20 15:54 | ED_ITS ---
Documented by User: VAISHALI Leiva 04/20/21 16:46 HPI - Abdominal Pain General: Chief Complaint: Abdominal Pain Stated Complaint: Bowel Impaction Time Seen by Provider: 04/20/21 15:38 Source: patient and family Mode of arrival: ambulatory Limitations: no limitations History of Present Illness: HPI narrative: Patient is a nice 75-year-old male who presents to ED today with a complaint of constipation. Patient tells me he has failed to have a bowel movement over the past 7 days. He states he has suffered from constipation previously and states it is most likely secondary to chronic opiate use. Patient states he requires pain medications for his prostate cancer. He is having some lower abdominal discomfort that he describes as fullness . He states he does have the urge to defecate but unable to go. He has continued to eat and drink normally. He has not had any vomiting. No previous abdominal surgeries. Patient has tried OTC enemas and stool softeners without relief. MD elicited complaint: abdominal pain and other (constipation) Onset (ago): day(s) Pain Consistency: constant Location: Other (lower abdomen) Severity: mild Quality: fullness Radiation: none Migration to: no migration Exacerbating factors: nothing Relieving factors: nothing Associated Symptoms: Reports constipation; Denies belching, chills, diarrhea, dysuria, fever(s), hematochezia, hematuria, melena, nausea and vomiting Treatments prior to arrival: other (otc stool softeners/enemas) Review of Systems Const: Denies: fever(s), chills, body aches, fatigue or malaise Card: Denies: chest pain Resp: Denies: dyspnea GI: Reports: abdominal pain and constipation; Denies: nausea, vomiting, early satiety, diarrhea, belching, pain on defecation, rectal pain, rectal swelling, hematochezia or melena : Denies: flank pain, dysuria or hematuria Musc: Denies: neck pain or back pain Skin/Breast: Denies: rash Neuro: Denies: headache(s) PFSH ED PFSH: Medical History (Updated 04/20/21 @ 17:56 by CHRISTINA Ahuja) Chest pain Social History Smoking and tobacco status: never smoked Alcohol intake: never Physical Exam Const: COMMON NORMALS: no acute distress, average body habitus, patient oriented x3, no limitations, healthy appearing, alert and well nourished GENERAL APPEARANCE: cooperative ORIENTATION/CONSCIOUSNESS: Yes awake, Yes oriented to person, Yes oriented to place and Yes oriented to time Resp: COMMON NORMALS: normal respiratory effort and clear to auscultation bilaterally AUSCULTATION: clear to auscultation bilaterally Cardio: COMMON NORMALS: regular rate and regular rhythm RATE: regular rate RHYTHM: regular rhythm GI: COMMON NORMALS: Normal to inspection, nondistended, normoactive bowel sounds present, Soft to palpation, No hepatosplenomegaly present and no masses INSPECTION: Yes normal to inspection AUSCULTATION: Yes normoactive bowel sounds PALPATION: Yes Soft to palpation, Yes Tenderness to palpation present (GI) (mild pain to lower abdomen-non surgical exam) and Yes No hepatosplenomegaly present RECTAL EXAM: Yes other (pt with leakage of stool; he has large amount of paste like stool in vault) Neuro: COMMON NORMALS: patient oriented x3 SENSORIUM/ORIENTATION: Yes alert, Yes oriented to person, Yes oriented to place and Yes oriented to time Course ED course: Abdominal exam is a nonsurgical. Abdominal XR without concerning findings for an obstruction. We will try enema here and reassess. Vital Signs: Vital signs: Vital Signs Temperature 98.0 F 04/20/21 15:32 Pulse Rate 79 04/20/21 15:42 Respiratory Rate 16 04/20/21 15:32 Blood Pressure 100/62 04/20/21 15:42 Pulse Oximetry 97 04/20/21 15:42 MDM - Abdominal Pain Lab Data: Labs: Lab Results 04/20/21 04/20/21 04/20/21 Range/Units 16:42 16:42 16:42 WBC 12.3 H (4.0-10.0) 10^3/ uL RBC 3.83 L (4.1-5.3) 10^6/u L Hgb 10.4 L (11.7-16.6) g/dL Hct 32.0 L (42.0-52.0) % MCV 83.6 (80-94) fl MCH 27.2 L (28.0-34.0) pg MCHC 32.5 (30.0-36.0) g/dL RDW 13.7 (12.1-15.1) % Plt Count 192 (130-400) 10^3/c mm MPV 10.3 (7.4-10.4) fL Neut % (Auto) 89.7 % Lymph % (Auto) 8.7 % Wilkinson % (Auto) 1.1 % Eos % (Auto) 0.3 % Baso % (Auto) 0.2 % Neut # (Auto) 10.26 H (1.8-7.7) 10^3/u L Lymph # (Auto) 1.1 (0.8-4.8) 10^3/u L Wilkinson # (Auto) 0.1 L (0.2-0.9) 10^3/u L Eos # (Auto) 0.0 (0.0-0.8) 10^3/u L Baso # (Auto) 0.0 (0.0-0.1) 10^3/u L Nucleated RBC % (a uto) 0 % Nucleated RBCs # 0.0 /100WBC Sodium Cancelled Potassium Cancelled Chloride Cancelled Carbon Dioxide Cancelled Anion Gap Cancelled BUN Cancelled Creatinine Cancelled GFR Calculation Cancelled Glucose Cancelled Calculated Osmolal ity Cancelled Lactic Acid 1.1 (0.5-2.2) mmol/L Calcium Cancelled Total Bilirubin Cancelled AST Cancelled ALT Cancelled Alkaline Phosphata se Cancelled Total Protein Cancelled Albumin Cancelled Globulin Cancelled Imaging Data ^: XR abdomen: Radiologist's impression: [address] [address] XRay Report Signed Patient: Gabriel Hsieh Unit #: [id number] : 1945 Age/Sex: 75 / M ADM Date: 04/20/21 Loc: ER Room/Bed: Attending Dr: Ordering Provider/Ordering MD: Madelin Gerardo Date of Service: 04/20/21 Procedure(s): XR abdomen 3V 77241 Accession Number(s): [id number] Report Number: [id number] PROCEDURE INFORMATION: Exam: XR Abdomen Exam date and time: 04/20/2021 3:54 PM Age: 75 years old Clinical indication: Constipation TECHNIQUE: Imaging protocol: XR of the abdomen. Views: 3 or more views. Total images: 3 COMPARISON: CT abdomen pelvis w con* [id number] 12/08/2020 4:43 PM FINDINGS: Tubes, catheters and devices: Right Infusaport catheter. Heart/Mediastinum: Cardiac structures and configuration with arteriosclerosis. Status post sternotomy chest and CABG. Aortic valve stent. Lungs: No visible active interstitial or alveolar airspace disease. COPD/chronic bronchitis. Mild senile fibrosis. Gastrointestinal tract: Nonobstructive bowel pattern. No visible adynamic or reactive ileus. Heavy fecal residue consistent with constipation. Intraperitoneal space: No visible pneumoperitoneum. Organs: Status post cholecystectomy. Evidence of a previous radical prostatectomy. 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 Osteopenia. XR/XR abdomen 3V 14754 IMPRESSION: 1. Nonacute. 2. Constipation. Dictated By: Ayo Bradley Signed By: Ayo Bradley Signed Date/Time: 04/20/211642 DD/ 41 Discharge Plan Discharge Patient Disposition: Home Clinical Impression: Constipation Qualifiers: Constipation type: unspecified constipation type Qualified Code(s): K59.00 - Constipation, unspecified Condition: Stable Prescriptions: No Action hydrocodone-acetaminophen 5-325 mg tablet 1 tab PO BID PRNRF: 0 clopidogrel [Plavix] 75 mg tablet 75 mg PO DAILY RF: 0 lactulose 10 gram/15 mL solution 10 g PO BID Qty: 237 RF: 0 multivitamin Tablet 1 tab PO QAM RF: 0 furosemide 40 mg tablet 40 mg PO QAM RF: 0 atorvastatin 40 mg tablet 40 mg PO BEDTIME RF: 0 lorazepam 0.5 mg tablet 0.5 mg PO DAILY PRN (Reason: Anxiety) RF: 0 losartan 25 mg tablet 25 mg PO QAM RF: 0 metoprolol tartrate 50 mg tablet 75 mg PO BID RF: 0 calcium 1 tab PO DAILY RF: 0 aspirin 325 mg Tablet 325 mg PO QAM RF: 0 polymyxin B sulf-trimethoprim 10,000 unit- 1 mg/mL drops 1 drp ophthalmic (eye) QID RF: 0 Discharge Orders: Discharge ED (Routine); Ordered 04/20/21 Ordered By: Randall Saucedo Referrals: Jennifer Calvin MD [Primary Care Provider] - Discharge Diet: Usual diet Discharge Activity: Increase activity as tolerated Patient Instructions: Constipation (ED), Opioid Safety Activity Restrictions/Additional Instructions: Continue with routine care. Follow-up with primary care to discuss further options available to help control constipation. A diet rich in fruits and vegetables often helps with constipation. Return to the ER with worsening symptoms such as uncontrolled pain and high fever. Sign Out Sign Out Data: Patient Sign Out occurred on 04/20/21 at 17:04. Patient's care was discussed, and care was transferred from to Randall Saucedo. Coding Level of Care Code ED Due Diligence Coordinator for Chg Fwd Exam Expanded Problem Focused Documented by User: CHRISTINA Ahuja 04/20/21 18:07 HPI - Abdominal Pain General: Chief Complaint: Abdominal Pain Stated Complaint: Bowel Impaction Time Seen by Provider: 04/20/21 15:38 PFS ED PFSH: Medical History (Updated 04/20/21 @ 17:56 by CHRISTINA Ahuja) Chest pain Social History Smoking and tobacco status: never smoked Alcohol intake: never Course Vital Signs: Vital signs: Vital Signs Temperature 98.0 F 04/20/21 15:32 Pulse Rate 79 04/20/21 15:42 Respiratory Rate 16 04/20/21 15:32 Blood Pressure 100/62 04/20/21 15:42 Pulse Oximetry 97 04/20/21 15:42 MDM - Abdominal Pain MDM Narrative: Medical decision making narrative: Patient was brought in due to difficulty with abdominal discomfort related to constipation. Differential diagnosis includes but not limited to obstruction, constipation, gastroenteritis. Laboratory values noted mild leukocytosis at 12.3, CT of the abdomen pelvis noted no obstruction but confirmed constipation. Patient was given a enema with good results. Patient was recommended to follow-up with primary care for further treatment of constipation. Lab Data: Labs: Lab Results 04/20/21 04/20/21 04/20/21 Range/Units 16:42 16:42 16:42 WBC 12.3 H (4.0-10.0) 10^3/ uL RBC 3.83 L (4.1-5.3) 10^6/u L Hgb 10.4 L (11.7-16.6) g/dL Hct 32.0 L (42.0-52.0) % MCV 83.6 (80-94) fl MCH 27.2 L (28.0-34.0) pg MCHC 32.5 (30.0-36.0) g/dL RDW 13.7 (12.1-15.1) % Plt Count 192 (130-400) 10^3/c mm MPV 10.3 (7.4-10.4) fL Neut % (Auto) 89.7 % Lymph % (Auto) 8.7 % Wilkinson % (Auto) 1.1 % Eos % (Auto) 0.3 % Baso % (Auto) 0.2 % Neut # (Auto) 10.26 H (1.8-7.7) 10^3/u L Lymph # (Auto) 1.1 (0.8-4.8) 10^3/u L Wilkinson # (Auto) 0.1 L (0.2-0.9) 10^3/u L Eos # (Auto) 0.0 (0.0-0.8) 10^3/u L Baso # (Auto) 0.0 (0.0-0.1) 10^3/u L Nucleated RBC % (a uto) 0 % Nucleated RBCs # 0.0 /100WBC Sodium Cancelled Potassium Cancelled Chloride Cancelled Carbon Dioxide Cancelled Anion Gap Cancelled BUN Cancelled Creatinine Cancelled GFR Calculation Cancelled Glucose Cancelled Calculated Osmolal ity Cancelled Lactic Acid 1.1 (0.5-2.2) mmol/L Calcium Cancelled Total Bilirubin Cancelled AST Cancelled ALT Cancelled Alkaline Phosphata se Cancelled Total Protein Cancelled Albumin Cancelled Globulin Cancelled Discharge Plan Discharge Patient Disposition: Home Clinical Impression: Constipation Qualifiers: Constipation type: unspecified constipation type Qualified Code(s): K59.00 - Constipation, unspecified Condition: Stable Prescriptions: No Action hydrocodone-acetaminophen 5-325 mg tablet 1 tab PO BID PRNRF: 0 clopidogrel [Plavix] 75 mg tablet 75 mg PO DAILY RF: 0 lactulose 10 gram/15 mL solution 10 g PO BID Qty: 237 RF: 0 multivitamin Tablet 1 tab PO QAM RF: 0 furosemide 40 mg tablet 40 mg PO QAM RF: 0 atorvastatin 40 mg tablet 40 mg PO BEDTIME RF: 0 lorazepam 0.5 mg tablet 0.5 mg PO DAILY PRN (Reason: Anxiety) RF: 0 losartan 25 mg tablet 25 mg PO QAM RF: 0 metoprolol tartrate 50 mg tablet 75 mg PO BID RF: 0 calcium 1 tab PO DAILY RF: 0 aspirin 325 mg Tablet 325 mg PO QAM RF: 0 polymyxin B sulf-trimethoprim 10,000 unit- 1 mg/mL drops 1 drp ophthalmic (eye) QID RF: 0 Discharge Orders: Discharge ED (Routine); Ordered 04/20/21 Ordered By: Randall Saucedo Referrals: Jennifer Calvin MD [Primary Care Provider] - Discharge Diet: Usual diet Discharge Activity: Increase activity as tolerated Patient Instructions: Constipation (ED), Opioid Safety Activity Restrictions/Additional Instructions: Continue with routine care. Follow-up with primary care to discuss further options available to help control constipation. A diet rich in fruits and vegetables often helps with constipation. Return to the ER with worsening symptoms such as uncontrolled pain and high fever. Sign Out Sign Out Data: Patient Sign Out occurred on 04/20/21 at 17:04. Patient's care was discussed, and care was transferred from to Randall Saucedo. Coding Level of Care Code ED Due Diligence Coordinator for Felix Fwd Exam Expanded Problem Focused
[2021-04-20 17:04] LABS: Basophils % 0.2 %; Eosinophils % 0.3 %; Hemoglobin 10.4 g/dL (11.7-16.6); Lymphocytes # 1.1 10^3/uL (0.8-4.8); Lymphocytes % 8.7 %; Mean Corpuscular HGB Conc 32.5 g/dL (30.0-36.0); Mean Corpuscular Hemoglobin 27.2 pg (28.0-34.0); Mean Corpuscular Volume 83.6 fl (80-94); Mean Platelet Volume 10.3 fL (7.4-10.4); Monocytes # 0.1 10^3/uL (0.2-0.9); Monocytes % 1.1 %; Neutrophils # 10.26 10^3/uL (1.8-7.7); Nucleated Red Blood Cells % 0 %; Platelet Count 192 10^3/cmm (130-400); Red Blood Count 3.83 10^6/uL (4.1-5.3); Red Cell Distribution Width 13.7 % (12.1-15.1); White Blood Count 12.3 10^3/uL (4.0-10.0)
[2021-04-20 17:07] LABS: Neutrophils % 89.7 %
[2021-04-20] MEDS: mineral oil ENEMA 133 mL PR (17:09)
[2021-04-20 17:21] LABS: Lactic Sepsis W/Reflex 1.1 mmol/L (0.5-2.2)
[2021-04-20] MEDS: magnesium hydroxide 30 mL UDC PO (17:51)
[2021-04-20] MEDS: mineral oil 30 mL UDC PO (17:51)
[2021-04-20] MEDS: lactulose oral liq 20 gm/30 mL UDC 30 GM PO (17:51)
[2021-04-20 18:23] VITALS: BP 149/62; PULSE 73; RESP 17; TEMP 36.7; O2SAT 93
== END 2021-04-20 18:24 | disposition home or self-care (01) ==
PROVIDERS: Physician Assistant; Emergency Provider Nurse Practitioner Family; PCP Family Medicine
DX: K59.00 Constipation, unspecified (principal); Z79.02 Long term (current) use of antithrombotics/antiplatelets; Z79.82 Long term (current) use of aspirin
CPT/HCPCS: 74021; 83605; 85025; 99283

== ENCOUNTER 2021-09-22 15:41 | Emergency (ER) | payer MEDICARE, SELFPAY ==
[2021-09-22 15:48] VITALS: BP 135/70; PULSE 83; RESP 14; TEMP 37.2; O2SAT 97; BMI 23.8
[2021-09-22 16:08] LABS: Basophils % 0.6 %; Eosinophils % 0.3 %; Hematocrit 29.4 % (42.0-52.0); Hemoglobin 9.2 g/dL (11.7-16.6); Lymphocytes # 0.6 10^3/uL (0.8-4.8); Lymphocytes % 16.9 %; Mean Corpuscular HGB Conc 31.3 g/dL (30.0-36.0); Mean Corpuscular Hemoglobin 29.2 pg (28.0-34.0); Mean Corpuscular Volume 93.3 fl (80-94); Mean Platelet Volume 11.1 fL (7.4-10.4); Monocytes # 0.1 10^3/uL (0.2-0.9); Monocytes % 2.6 %; Neutrophils # 2.23 10^3/uL (1.8-7.7); Nucleated Red Blood Cells % 0 %; Platelet Count 87 10^3/cmm (130-400); Red Blood Count 3.15 10^6/uL (4.1-5.3); Red Cell Distribution Width 16.1 % (12.1-15.1); White Blood Count 3.5 10^3/uL (4.0-10.0)
--- NOTE | 2021-09-22 16:12 | ED_ITS ---
HPI - GI Bleed General: Chief complaint: GI Bleed Stated complaint: rectal bleeding Time Seen by Provider: 09/22/21 15:50 Source: patient and family Mode of arrival: ambulatory Limitations: no limitations History of Present Illness: Comes to the emergency department accompanied by his spouse was because he is concerned about blood in his stool. He states that earlier today he strained at stool and noted a very minimal amount of blood at the end of the bowel movement. He states he has had a couple of episodes of bright red blood per rectum since. The 1st of these subsequent episodes it was difficult to quantify the blood amount as it was on top of the stool. He states the 2nd episode was approximately 3 3 inches in diameter in his depends. He states there was a few small clots. He does have a history of constipation and his relates that occasionally he digs at his rectum to get stool started. He takes a full aspirin because of a TAVR done at [facility]. Takes no other anticoagulants. He is in the midst of chemotherapy for prostate cancer and his last chemotherapy round was on of this past week. He denies any fevers or chills lightheadedness weakness nausea vomiting diarrhea etc. MD complaint: gross hematochezia Associated symptoms: Denies abdominal pain, chills, fever(s), headache(s), other bleeding, rash, syncope or vomiting Review of Systems Const: Denies: fever(s), chills or body aches Eyes: Denies: change in vision or blurry vision ENMT: Denies: throat pain, odynophagia or nasal congestion Card: Denies: chest pain, palpitations, irregular heart rhythm, edema, lightheadedness, syncope or pre-syncope Resp: Denies: productive cough or non-productive cough GI: Denies: abdominal pain or vomiting : Denies: flank pain, difficulty urinating or dysuria Musc: Denies: neck pain, back pain, extremity pain or extremity swelling Skin/Breast: Denies: rash, pruritus, erythema or skin tenderness Neuro: Denies: headache(s), numbness in extremities or weakness in extremities Endo: Reports: polyuria Edinson/Lymph: Denies: petechiae or purpura PFS ED PFSH: Medical History Chest pain Social History Smoking and tobacco status: never smoked Alcohol intake: never Physical Exam Narrative: EXAM NARRATIVE: Patient appears comfortable no acute distress. Const: COMMON NORMALS: no acute distress HENMT: COMMON NORMALS: normocephalic, atraumatic, Normal nasal mucous membranes and turbinates present, moist oral mucous membranes and oropharynx normal HEAD & SCALP: normocephalic and atraumatic NOSE: Normal nasal mucous membranes and turbinates present Eye: COMMON NORMALS: Equal, round and reactive pupils present, EOMs intact bilaterally and conjunctivae normal CONJUNCTIVA: Yes conjunctivae normal PUPIL: Yes Equal, round and reactive pupils present Neck/C-Spine: COMMON NORMALS: full ROM, no lymphadenopathy, no JVD and No carotid bruits Lymph: LYMPHATIC: no lymphadenopathy noted Chest: COMMONS NORMALS: normal inspection of the chest Resp: COMMON NORMALS: normal respiratory effort, No retractions and clear to auscultation bilaterally AUSCULTATION: clear to auscultation bilaterally Cardio: COMMON NORMALS: no JVD, regular rhythm and Peripheral pulses 2+ throughout RHYTHM: regular rhythm HEART SOUNDS: Murmur heart sound present (He has a 3/6 systolic murmur left sternal border) PERIPHERAL PULSES: Fanny pheral pulses 2+ throughout GI: COMMON NORMALS: Normal to inspection, nondistended, normoactive bowel sounds present, Soft to palpation, non-tender, No hepatosplenomegaly present and no masses PALPATION: Yes Soft to palpation and Yes No hepatosplenomegaly present RECTAL EXAM: No hemorrhoids and Yes Excoriation present (GI) OTHER: Rectal examination reveals some very thin rectal mucosa. There is some very fine fissuring proximal with extreme distraction of the anal mucosa. No hemorrhoidal veins were noted. There is no active bleeding at this time. : COMMON NORMALS: Yes no CVA tenderness BLADDER/KIDNEY EXAM: Yes no CVA tenderness Back/Pelvis: COMMON NORMALS: no CVA tenderness, thoracic and lumbar spine normal to inspection, no thoracic nor lumbar tenderness and thoraco-lumbar ROM normal Extremity: COMMON NORMALS: normal to inspection, capillary refill normal, no joint enlargement, no clubbing, cyanosis or edema and no calf tenderness Course Reevaluation(s): Reevaluation #1: Patient is stable and doing well. He has had bowel movements since our last evaluation with out any bright red blood in his stools. He subjectively feels fine. Think this likely represents more of rectal trauma and bleeding from a rectal fissure either secondary to hard stool and/or his digital manipulation. Does not display any signs of profound anemia, orthostatic hypotension etc. Vital Signs: Vital signs: Vital Signs Temperature 98.9 F 09/22/21 15:48 Pulse Rate 86 09/22/21 17:13 Respiratory Rate 16 09/22/21 17:13 Blood Pressure 126/75 09/22/21 17:13 Pulse Oximetry 96 09/22/21 17:13 MDM - GI Bleed Medical Decision Making Patient currently clinically stable without any evidence of ongoing hematochezia. Hemodynamically stable. He does not do not feel that this represents a more serious condition than bleeding from distal rectal fissure. I have discussed current findings my clinical impression and expected course and reasons for return and follow-up with both patient and spouse. I recommended using MiraLAX on a regular basis to prevent constipation. They both acknowledged her discussion. Stable for discharge. Lab Data I reviewed the patient's lab results. : 09/22/21 16:01 09/22/21 16:01 Laboratory Results WBC 3.5 10^3/uL (4.0-10.0) L 09/22/21 16:01 RBC 3.15 10^6/uL (4.1-5.3) L 09/22/21 16:01 Hgb 9.2 g/dL (11.7-16.6) L 09/22/21 16:01 Hct 29.4 % (42.0-52.0) L 09/22/21 16:01 MCV 93.3 fl (80-94) 09/22/21 16:01 MCH 29.2 pg (28.0-34.0) 09/22/21 16:01 MCHC 31.3 g/dL (30.0-36.0) 09/22/21 16:01 RDW 16.1 % (12.1-15.1) H 09/22/21 16:01 Plt Count 87 10^3/cmm (130-400) L 09/22/21 16:01 MPV 11.1 fL (7.4-10.4) H 09/22/21 16:01 Neut % (Auto) 79.6 % 09/22/21 16:01 Lymph % (Auto) 16.9 % 09/22/21 16:01 [place] % (Auto) 2.6 % 09/22/21 16:01 Eos % (Auto) 0.3 % 09/22/21 16:01 Baso % (Auto) 0.6 % 09/22/21 16:01 Neut # (Auto) 2.23 10^3/uL (1.8-7.7) 09/22/21 16:01 Lymph # (Auto) 0.6 10^3/uL (0.8-4.8) L 09/22/21 16:01 [place] # (Auto) 0.1 10^3/uL (0.2-0.9) L 09/22/21 16:01 Eos # (Auto) 0.0 10^3/uL (0.0-0.8) 09/22/21 16:01 Baso # (Auto) 0.0 10^3/uL (0.0-0.1) 09/22/21 16:01 Nucleated RBC % (auto) 0 % 09/22/21 16:01 Nucleated RBCs # 0.0 /100WBC 09/22/21 16:01 Sodium 133 mmol/L (136-145) L 09/22/21 16:01 Potassium 4.5 mmol/L (3.5-5.1) 09/22/21 16:01 Chloride 101 mmol/L (98-107) 09/22/21 16:01 Carbon Dioxide 24 mmol/L (22-29) 09/22/21 16:01 Anion Gap 12.5 (5-19) 09/22/21 16:01 BUN 22 mg/dL (8-23) 09/22/21 16:01 Creatinine 1.0 mg/dL (0.7-1.2) 09/22/21 16:01 GFR Calculation Not Reportable 09/22/21 16:01 Glucose 148 mg/dL (65-115) H 09/22/21 16:01 Calculated Osmolality 282 mOsm/kg (285-295) L 09/22/21 16:01 Calcium 8.4 mg/dL (8.5-10.5) L 09/22/21 16:01 Total Bilirubin 0.6 mg/dL (0.15-1.2) 09/22/21 16:01 AST 29 U/L (0-40) 09/22/21 16:01 ALT 20 U/L (0-41) 09/22/21 16:01 Alkaline Phosphatase 161 IU/L (40-130) H 09/22/21 16:01 Total Protein 5.7 g/dL (6.6-8.7) L 09/22/21 16:01 Albumin 3.5 g/dL (3.5-5.2) 09/22/21 16:01 Globulin 2.2 g/dL (1.3-4.6) 09/22/21 16:01 Discharge Plan Discharge Patient Disposition: Home Clinical Impression: Hematochezia Condition: Stable Prescriptions: No Action multivitamin Tablet 1 tab PO QAM 0RF furosemide 40 mg tablet 40 mg PO QAM 0RF atorvastatin 40 mg tablet 40 mg PO BEDTIME 0RF losartan 25 mg tablet 25 mg PO DAILY 0RF metoprolol tartrate 50 mg tablet 25 mg PO BID 0RF calcium 250 mg Tablet 250 mg PO BID Qty: 0 0RF aspirin 325 mg Tablet 325 mg PO DAILY 0RF lactulose 10 gram/15 mL solution 10 g PO BID PRN (Reason: Constipation) 0RF Discharge Orders: Discharge ED (Routine); Ordered 09/22/21 Ordered By: Grey Miller Referrals: Jennifer Calvin MD [Primary Care Provider] - Discharge Diet: Usual diet Discharge Activity: Resume usual activity Patient Instructions: Opioid Safety Activity Restrictions/Additional Instructions: Use MiraLAX powder 1 tablespoon in water each day to help prevent constipation. Should you develop any recurrent rectal bleeding, lightheadedness, abdominal pain or any other concerning symptoms return to this or the nearest emergency department. Coding Level of Care Code ED Bridge Operator Slip for Drug Fwd Exam Comprehensive
[2021-09-22 16:28] LABS: Alanine Aminotransferase 20 U/L (0-41); Albumin Level 3.5 g/dL (3.5-5.2); Alkaline Phosphatase 161 IU/L (40-130); Anion Gap 12.5 (5-19); Aspartate Amino Transferase 29 U/L (0-40); Blood Urea Nitrogen 22 mg/dL (8-23); Calcium 8.4 mg/dL (8.5-10.5); Carbon Dioxide 24 mmol/L (22-29); Chloride 101 mmol/L (98-107); Globulin 2.2 g/dL (1.3-4.6); Glucose 148 mg/dL (65-115); Osmolality Calculated 282 mOsm/kg (285-295); Potassium 4.5 mmol/L (3.5-5.1); Sodium 133 mmol/L (136-145); Total Bilirubin 0.6 mg/dL (0.15-1.2); Total Protein 5.7 g/dL (6.6-8.7)
[2021-09-22 16:30] LABS: Neutrophils % 79.6 %; Slide Review Slide Review Perform
[2021-09-22 17:13] VITALS: BP 126/75; PULSE 86; RESP 16; O2SAT 96
[2021-09-22 18:56] VITALS: BP 130/85; PULSE 90; RESP 16; O2SAT 97
== END 2021-09-22 18:44 | disposition home or self-care (01) ==
PROVIDERS: Physician Assistant; Emergency Provider Emergency Medicine; PCP Family Medicine
DX: K92.1 Melena (principal); Z79.82 Long term (current) use of aspirin
CPT/HCPCS: 80053; 85025; 99283

== ENCOUNTER 2021-12-17 20:00 | Outpatient (CLI) | payer MEDICARE, SELFPAY | END 2021-12-17 20:01 | disposition home or self-care (01) | LOC: SLEEP 12-18 08:24 | PROVIDERS: PCP Family Medicine; Visit Provider Physician Assistant | DX: G47.33 Obstructive sleep apnea (adult) (pediatric) (principal) | CPT/HCPCS: 95811 ==

== ENCOUNTER 2022-04-08 06:00 | Outpatient (RCR) | payer MEDICARE, SELFPAY | END 2022-05-02 23:59 | disposition home or self-care (01) | LOC: MOT 06:00 | PROVIDERS: PCP Family Medicine; Referring Provider Family Medicine; Visit Provider Family Medicine | DX: I89.0 Lymphedema, not elsewhere classified (principal) | CPT/HCPCS: 97140; 97166 ==